=== PATIENT | female | born 1940 | race Caucasian/White ===

== ENCOUNTER 2021-10-16 10:10 | Day surgery (SDC) | payer MEDICARE, BC ==
[2021-10-15 13:38] LABS: BASOPHILS # (AUTO) 0.1 X10'3 (0-0.2); BASOPHILS % (AUTO) 1.3 % (0-1); EOSINOPHILS # (AUTO) 0.3 X10'3 (0-0.9); EOSINOPHILS % (AUTO) 3.8 % (0-6); HEMATOCRIT 40.9 % (35.0-45.0); HEMOGLOBIN 13.6 g/dl (12.0-16.0); LYMPHOCYTES # (AUTO) 1.8 X10'3 (1.1-4.8); MEAN CORPUSCULAR HEMOGLOBIN 28.9 PG (27.0-31.0); MEAN CORPUSCULAR HGB CONC 33.3 g/dL (33.0-36.5); MEAN CORPUSCULAR VOLUME 86.8 FL (78-98); MEAN PLATELET VOLUME 9.3 FL (7.4-10.4); MONOCYTES # (AUTO) 0.7 X10'3 (0-0.9); MONOCYTES % (AUTO) 9.6 % (2-12); NEUTROPHILS # (AUTO) 4.6 X10'3 (1.8-7.7); NEUTROPHILS % (AUTO) 61.3 % (42-75); PLATELET COUNT 188 X10'3 (140-440); RED BLOOD COUNT 4.72 X10'6 (4.20-5.60); RED CELL DISTRIBUTION WIDTH 15.7 % (11.5-14.5); WHITE BLOOD COUNT 7.5 X10'3 (4.5-11.0)
[2021-10-15 13:52] LABS: APTT 26 SECONDS (22-32)
[2021-10-15 14:18] LABS: ALBUMIN 3.5 G/DL (3.4-5.0); ANION GAP 10 (8-16); BLOOD UREA NITROGEN 18 MG/DL (7-18); CALCIUM 9.2 MG/DL (8.5-10.1); CHLORIDE 104 MMOL/L (99-107); CREATININE 0.75 MG/DL (0.40-0.90); GLUCOSE 93 MG/DL (70-104); POTASSIUM 4.7 MMOL/L (3.5-5.1); SODIUM 142 MMOL/L (135-145); TOTAL CARBON DIOXIDE 27.6 MMOL/L (24-32); eGFR 75 ML/MIN
[~2021-10-16] VITALS: Ht 152.4 cm; Wt 73.8 kg
[2021-10-16] VITALS (13 sets, daily range): BP systolic 120–139; BP diastolic 53–73
[2021-10-16] MEDS ORDERED: CLOP75TA34 PO (10:33)
[2021-10-16] MEDS ORDERED: ROSU10TA28 PO (10:33)
[2021-10-16] MEDS ORDERED: LISI10TA27 PO (10:33)
[2021-10-16] MEDS ORDERED: AMLO5TAB16 PO (10:33)
[2021-10-16] MEDS ORDERED: cefazolin/dext.iso 2gm/100ml 100 ML IV ONE (10:50)
[2021-10-16] MEDS ORDERED: cefazolin/dext.iso 2gm/100ml 50 ML IV ONE (10:50)
[2021-10-16] MEDS ORDERED: LIDOcaine 1% w/EPI 1:100,000 30ml vial (MDV) ONE ×2 (14:08→14:09)
[2021-10-16] MEDS ORDERED: ceFAZolin 1000mg inj ONE (14:08)
[2021-10-16] MEDS ORDERED: midazolam 1 mg/ML 2ml injection ONE (14:18)
[2021-10-16] MEDS ORDERED: fentaNYL/PF 50MCG/1 ML 2ML syringe ONE (14:18)
[2021-10-16] MEDS ORDERED: normal saline 1000ml 1,000 ML IV SCH (15:30)
[2021-10-16] MEDS ORDERED: VANCOMYCIN 1GM/200ML IVPB 200 ML IV ONE (16:30)
--- NOTE | 2021-10-16 19:00 | NUR ---
at bedside. Written and verbal DC instructions given to pt and , both verbalize understanding. PIV DC cath intact. VSS, denies pain. Dressing to left anterior chest CDI, no signs of bleeding, bruising or hematoma. Pt up to restroom void in toilet, gait steady.
--- NOTE | 2021-10-16 19:35 | NUR ---
DC to home with , with all belongings and [employer] accessories. Educated pt about keeping pacemaker card in wallet and picking up antibiotic prescription tomorrow and taking the whole course of antibiotics. Transferred to private car via pt able to transfer self to car without issues.
== END 2021-10-16 19:35 | disposition home or self-care (01) ==
LOC: SSTAY O 10:10
PROVIDERS: ATTEND Internal Medicine Cardiovascular Disease
DX: Z45.010 Encounter for checking and testing of cardiac pacemaker pulse generator [battery] (principal); I10 Essential (primary) hypertension; I44.7 Left bundle-branch block, unspecified; E78.49 Other hyperlipidemia; Z88.8 Allergy status to other drugs, medicaments and biological substances; Z79.899 Other long term (current) drug therapy; Z79.01 Long term (current) use of anticoagulants; Z85.828 Personal history of other malignant neoplasm of skin; Z90.49 Acquired absence of other specified parts of digestive tract; Z98.890 Other specified postprocedural states
CPT/HCPCS: 33228; 36415; 80048; 85025; 85610; 85730; 93005; 99152; 99153; C1785; J0690; J2250; J3010; J3370; J3490; A4620; A6258; A6449